=== PATIENT | male | born 1965 | race Caucasian/White ===

== ENCOUNTER 2016-10-22 18:02 | Emergency (ER) | payer SELFPAY ==
[~2016-10-22] VITALS: Ht 182.9 cm; Wt 93.0 kg
[2016-10-22 18:04] VITALS: Ht 182.9 cm; Wt 93.0 kg
[2016-10-22] MEDS ORDERED: KETOROLAC 15 MG INJ IV STA (19:17)
[2016-10-22] MEDS ORDERED: HYDROCODONE/APAP (10/325) TAB PO ONE (19:30)
--- NOTE | 2016-10-22 20:18 | RADRPT ---
PROCEDURE: US left knee. CLINICAL INDICATION: Septic joint, Delgado's cyst. TECHNIQUE: Multiple longitudinal and transverse images of the left knee were obtained. Images were interpreted on high-resolution PACS system. COMPARISON: No prior studies are available for comparison. FINDINGS: Within the posterior knee popliteal region, there is a lobulated fluid collection without internal f low measuring about 1.9 x 1.2 x 2.6 cm with slight wall thickening. The popliteal vein is intact an d compressible without a focal thrombus. RPTAT: ZZ IMPRESSION: Lobulated fluid collection without internal flow measuring up to 2.6 cm within the posterior knee po pliteal region which may correspond with a popliteal cyst. A follow-up MRI may be obtained for floridalma tional evaluation. .Linda Jones MD, Date Time Electronically viewed and signed by .Linda Jones MD, on 10/22/2016 20:18 .T/
--- NOTE | 2016-10-22 20:20 | RADRPT ---
PROCEDURE: XR Knee. CLINICAL INDICATION: Septic joint with pain, Delgado's cyst. TECHNIQUE: Three views of the left knee are available for review. COMPARISON: None available FINDINGS: There is no acute fracture or dislocation. There is moderate to severe joint space narrowing within the medial compartment more prominent along the lateral aspect. Mild joint space narrowing is also present within the lateral compartment. There is also joint space narrowing within the patellofemo ral compartment. There is prominent tricompartmental osseous spurring. There is an osteochondral b jeanette within the posterior knee posterior to the femoral condyles measuring about 3.0 cm. There may a lso be smaller osteochondral bodies posterior to the joint line. There is a vayooznv-we-buirb joint effusion. RPTAT: ZZ IMPRESSION: 1. Tricompartmental osteoarthrosis, more prominent involving the medial and patellofemoral compartm ents with joint space narrowing and prominent osseous spurring. 2. Moderate to large joint effusion. 3. Osteochondral bodies posterior to the knee measuring up to 3.0 cm. .Linda Jones MD, MD Date Time Electronically viewed and signed by .Linda Jones MD, on 10/22/2016 20:20 .T/
[2016-10-22 20:21] LABS: BASOPHILS % 0.1 % (0.0-2.0); EOSINOPHILS % 0.3 % (0.0-7.0); HEMATOCRIT 44.5 % (42.0-52.0); HEMOGLOBIN 14.6 g/dl (14.0-18.0); LYMPHOCYTES # 1.3 10^3/ul (0.8-2.9); LYMPHOCYTES % 19.5 % (15.0-51.0); MEAN CORPUSCULAR HEMOGLOBIN 26.8 pg (29.0-33.0); MEAN CORPUSCULAR HGB CONC 32.8 g/dl (32.0-37.0); MEAN CORPUSCULAR VOLUME 81.7 fl (82.0-101.0); MEAN PLATELET VOLUME 10.7 fl (7.4-10.4); MONOCYTE # 0.5 10^3/ul (0.3-0.9); MONOCYTES % 7.8 % (0.0-11.0); NEUTROPHIL # 4.9 10^3/ul (1.6-7.5); PLATELET COUNT 186 10^3/UL (140-415); RED BLOOD COUNT 5.45 10^6/ul (4.70-6.10); RED CELL DISTRIBUTION WIDTH 13.2 % (11.5-14.5); WHITE BLOOD COUNT 6.8 10^3/ul (4.8-10.8)
--- NOTE | 2016-10-22 20:55 | ERD ---
ER Documentation Chief Complaint Date/Time DATE: 10/22/16 TIME: 20:52 Chief Complaint left knee pain/swelling x 3 days (ANANTH CHAVARRIA) HPI This pleasant 51-year-old male patient presents to emergency department for evaluation of left knee pain. Patient reports pain 3 days with worsening. Patient reports that he has a extensive knee history including 4 arthroscopic procedures on the left knee, 2 on the right knee. Patient denies any injury, reports that he had worked longer hours Thursday and Thursday was on his feet longer noticed a feeling of a strain, patient now reports warmth, pain with bending his knee. Patient is able to feel a mass behind his left knee. Patient denies shortness of breath, recent surgery, nausea vomiting fever or chills. (ANANTH CHAVARRIA) ROS All systems reviewed and are negative except as per history of present illness. (ANANTH CHAVARRIA) Medications Home Meds Active Scripts Hydrocodone/Acetaminophen ([place] 10-325 Tablet) 1 Each Tablet, 1 TAB PO Q6H Y for PAIN, #20 TAB Prov:DEONOLGAANANTH 10/23/16 Naproxen* (Naprosyn*) 500 Mg Tablet, 500 MG PO BID Y for PAIN AND/OR INFLAMMATION for 10 Days, #20 TAB Prov:DEON,ANANTH 10/23/16 Allergies Allergies: Coded Allergies: No Known Allergy (Unverified , 10/23/16) PMhx/Soc History of Surgery: Yes (LEFT KNEE X 2; RIGHT KNEE X 4.) Anesthesia Reaction: No Hx Neurological Disorder: No Hx Respiratory Disorders: No Hx Cardiac Disorders: No Hx Psychiatric Problems: No Hx Miscellaneous Medical Probl: No Hx Alcohol Use: No Hx Substance Use: Yes (MARIJUANA) Smoking Status: Never smoker (ANANTH CHAVARRIA) Physical Exam Vitals Vitals stable, triage notes reviewed (ANANTH CHAVARRIA) Physical Exam Const: Well-nourished, well hydrated, with well-appearing no acute distress Head: Eyes: Normal Conjunctiva PERRLA, EOMI ENT: Neck: Resp: Respirations even and unlabored no respiratory distress Cardio: Abd: Back: Ext: Lower Extremity -left: Skin: No petechiae or rashes left knee presents with bony deformities, Compartments: Soft Motor: Decreased range of motion with flexion pain with ambulating, full hip flexion and ankle rotation Sensation: [Intact to light touch anterior posterior lateral surfaces Bones: Patellar tenderness Joints: Obvious effusion, anterior knee tenderness Pulses/Perfusion: 2+ DP, Capillary refill < 2 seconds Neur: Awake and alert Psych: Normal Mood and Affect (DEON,ANANTH) Physical Exam Const: well appearing, nontoxic, no apparent distress Head: Atraumatic Eyes: Normal Conjunctiva ENT: Normal External Ears, Nose and Mouth. Neck: Full range of motion..~ No meningismus. Resp: Clear to auscultation bilaterally Cardio: Regular rate and rhythm, no murmurs. 2+ Dp and PT pulses Abd: Soft, non tender, non distended. Normal bowel sounds Skin: No petechiae or rashes Back: No midline or flank tenderness Ext: Left knee with joint effusion, no overlying warmth or erythema. Mild tenderness to palpation. No calf tenderness. Very limited ROM of left knee secondary to pain. All other joints normal. Neur: Awake and alert, motor and sensations intact in all 4 extremities. Psych: Normal Mood and Affect (EKMEKJIANYOVANI MD) Results 24 hrs Laboratory Tests Test 10/22/16 20:07 10/22/16 23:16 10/23/16 02:35 10/27/16 07:38 White Blood Count 6.810^3/ul Red Blood Count 5.4510^6/ul Hemoglobin 14.6g/dl Hematocrit 44.5% Mean Corpuscular Volume 81.7fl Mean Corpuscular Hemoglobin 26.8pg Mean Corpuscular Hemoglobin Concent 32.8g/dl Red Cell Distribution Width 13.2% Platelet Count 68505^3/UL Mean Platelet Volume 10.7fl Neutrophils % 72.0% Lymphocytes % 19.5% Monocytes % 7.8% Eosinophils % 0.3% Basophils % 0.1% Nucleated Red Blood Cells % 0.0/100WBC Neutrophils # 4.910^3/ul Lymphocytes # 1.310^3/ul Monocytes # 0.510^3/ul Eosinophils # 0.010^3/ul Basophils # 0.010^3/ul Nucleated Red Blood Cells # 0.010^3/ul Erythrocyte Sedimentation Rate 13mm/Hr Uric Acid 4.5mg/dl Body Fluid Type SYNOVIAL FLUID Body Fluid Lactate Dehydrogenase U/L Synovial Fluid Source SYNOVIAL Synovial Fluid Color YELLOW Synovial Fluid Appearance CLOUDY Synovial Fluid Volume 70.0mL Synovial Fluid WBC 6973/cmm Synovial Fluid Polynuclear WBCs % 93.6% Synovial Fluid Mononuclear WBCs % 6.4& Synovial Fluid Crystals NO CRYSTALS SEEN Miscellaneous Test Lab Scanned Report REFERENCE [id number] Current Medications Medications (Trade) Dose Ordered Sig/Fly Route PRN Reason Start Time Stop Time Status Last Admin Dose Admin Acetaminophen/ Hydrocodone Bitart ([place] (10/325)) 1 tab ONCE ONCE PO 10/22/16 19:30 10/22/16 19:31 DC 10/22/16 19:29 Ketorolac Tromethamine (Toradol) 15 mg ONCE STAT IV 10/22/16 19:17 10/22/16 19:24 DC 10/22/16 19:30 Lidocaine (Xylocaine 2% (Mdv) 20 ml) 20 ml ONCE STAT INJ 10/22/16 21:45 10/22/16 21:51 DC Acetaminophen/ Hydrocodone Bitart ([place] (10/325)) 1 tab ONCE ONCE PO 10/23/16 00:00 10/23/16 00:01 DC 10/23/16 00:20 (YOVANI FREEMAN MD) Results 24 hrs Interpretation text CBC shows no evidence of hemorrhage or infection Uric acid unremarkable for elevation suggestive of gout Sed rate is normal Synovial fluid positive for neutrophils and WBCs. Negative for crystals Gram stain negative for organisms, 4+ white blood cells. (ANANTH CHAVARRIA) Procedures/MDM PROCEDURE: XR Knee. CLINICAL INDICATION: Septic joint with pain, Delgado's cyst. TECHNIQUE: Three views of the left knee are available for review. COMPARISON: None available FINDINGS: There is no acute fracture or dislocation. There is moderate to severe joint space narrowing within the medial compartment more prominent along the lateral aspect. Mild joint space narrowing is also present within the lateral compartment. There is also joint space narrowing within the patellofemoral compartment. There is prominent tricompartmental osseous spurring. There is an osteochondral body within the posterior knee posterior to the femoral condyles measuring about 3.0 cm. There may also be smaller osteochondral bodies posterior to the joint line. There is a bzevfbmf-is-xmfdp joint effusion. RPTAT: ZBhakti IMPRESSION: 1. Tricompartmental osteoarthrosis, more prominent involving the medial and patellofemoral compartments with joint space narrowing and prominent osseous spurring. 2. Moderate to large joint effusion. 3. Osteochondral bodies posterior to the knee measuring up to 3.0 cm. Electronically viewed and signed by .Linda Jones MD, on 10/22/2016 20: 20 PROCEDURE: US left knee. CLINICAL INDICATION: Septic joint, Delgado's cyst. TECHNIQUE: Multiple longitudinal and transverse images of the left knee were obtained. Images were interpreted on high-resolution PACS system. COMPARISON: No prior studies are available for comparison. FINDINGS: Within the posterior knee popliteal region, there is a lobulated fluid collection without internal flow measuring about 1.9 x 1.2 x 2.6 cm with slight wall thickening. The popliteal vein is intact and compressible without a focal thrombus. RPTAT: ZZ IMPRESSION: Lobulated fluid collection without internal flow measuring up to 2.6 cm within the posterior knee popliteal region which may correspond with a popliteal cyst. A follow-up MRI may be obtained for additional evaluation. Electronically viewed and signed by .Linda Jones MD, on 10/22/2016 20: 18 PROCEDURE: US left knee. CLINICAL INDICATION: Septic joint, Delgado's cyst. TECHNIQUE: Multiple longitudinal and transverse images of the left knee were obtained. Images were interpreted on high-resolution PACS system. COMPARISON: No prior studies are available for comparison. FINDINGS: Within the posterior knee popliteal region, there is a lobulated fluid collection without internal flow measuring about 1.9 x 1.2 x 2.6 cm with slight wall thickening. The popliteal vein is intact and compressible without a focal thrombus. RPTAT: ZZ IMPRESSION: Lobulated fluid collection without internal flow measuring up to 2.6 cm within the posterior knee popliteal region which may correspond with a popliteal cyst. A follow-up MRI may be obtained for additional evaluation. .Linda Jones MD, MD Procedure note; Left knee prepped with alcohol and benzoin in usual sterile fashion, local anesthetic with 2% lidocaine to lateral aspect of distally to patella. Scant amount of aspirate and needle hub. Case discussed with supervising physician Dr. Seay Physician i re-preps knee with alcohol and benzoin in usual sterile fraction, local anesthesia with 2% lidocaine to lateral aspect of the knee superior to patella and withdraws 66 mL of turbid yellow fluid. This fluid was sent for culture and sensitivity. Patient tolerated the seizure well, no bleeding, puncture wounds covered with bandage. Raymond wrap applied for support. Teaching provided as to activity, patient has lidocaine injected in the to be careful for the next several hours not to overextend or injure his knee. This pleasant 51-year-old male patient presents to emergency department for knee pain with history of osteoarthritis. Degenerative joint disease. Septic joint is suspected along with knee effusion, Delgado's cyst or popliteal cyst. WBC obtained no evidence of infection or acute blood loss. Right knee x-ray shows tricompartmental osteoarthritis more prominent involving the medial and patellofemoral compartments with joint space narrowing predominant osseous spurring. Moderate to large joint effusion. Osteochondral drill bodies posterior to the knee measuring up to 3.0 cm Left knee ultrasound which documents a lobulated fluid collection without internal flow measuring up to 2.6 cm with posterior knee popliteal region which may correspond with popliteal cyst. Follow-up MRI suggested if warranted. Patient receives Toradol, and [place] for pain while in emergency department with effective relief of pain. Joint aspirate of 65 cc turbid yellow serous fluid sent for laboratory testing. With abnormal results, neutrophils, WBCs. Gram stain negative for organisms Dr. Seay called residential specialist Dr. Troy discussed case. Patient is appropriate for outpatient management and follow-up with residential specialist. Patient will be discharged home with Raymond wrap, pain medication, Naprosyn and [place]. Follow-up with residential specialist for plan of action and treatment options for left knee pain degenerative joint disease possible popliteal cyst. I feel the patient is stable for discharge at this time. I have discussed results, examination findings, the treatment plan with the patient and family present prior to discharge. Indications for emergent reevaluation, side effects of medication were also discussed. All questions were answered. Patient verbalizes understanding and agrees with plan of care. (ANANTH CHAVARRIA) I evaluated the patient myself and I discussed this case with the PA. Decision was made to aspirate the joiint, mainly for relief of the patient's symptoms, as concern for septic joint was low. Her attempt at joint aspiration was unsuccessful, so I repeated the procedure, and successfully removed about 65-66 ml of yellow, cloudy fluid. The results of the fluid analysis were concerning as there was a high neutrophil %, but negative gram stain and the WBC count was not as elevated as would be expected with a bacterial joint infection. ESR and WBC of the blood were wnl. I spoke with Dr. Troy, the orthopedist three dimensional art instructor about this case. He states that he doubts this to be a septic joint. He stated if gram stain negative, patient appropriate for outpatient Ortho follow up and if I want, to inject the knee with steroid in the ED. At this time, I think it is more safe to wait for the culture results prior to injection with steroids. I discussed the discharge plan with the patient and he is comfortable with the plan for discharge and outpatient follow up. Return precautions given. (YOVANI FREEMAN MD) Departure Diagnosis: Primary Impression: Osteoarthritis Osteoarthritis location: knee Osteoarthritis type: unspecified Laterality: left Qualified Code: M17.12 - Osteoarthritis of left knee, unspecified osteoarthritis type Additional Impression: Joint effusion of knee Condition: Stable Patient Instructions: Knee Effusion, What Is Arthritis? Additional Instructions: Thank you for for coming to [facility] for your care today. Please ask your nurse or provider if you have questions about your care today and do not leave until all your questions have been answered. Please use any medications given as directed and follow-up with your doctor (or the doctor you were referred to) in the next 2-3 days. If you do not have a primary care doctor you may follow up at the [facility] (listed below). You may also use motrin and tylenol as needed for fever and/or pain unless instructed otherwise by your provider or nurse. Indications for more urgent follow-up have been discussed, but you may return to the Emergency Department at ANY time for any worrisome or worsening symptoms. If you have abdominal pain, please know that no test or exam you received is perfect and you should follow up within 8 hours for continued pain. If you had any imaging studies today, such as an X-Ray or CT Scan, these studies will be reviewed later by a radiologist. You will be called if there are important findings that were not identified today, so make sure the contact information you provided at registration is correct. If you received any narcotic pain control medicine today, such as Vicodin, Morphine or Dilaudid, your coordination and judgment may be affected for a number of hours. Please do not drive or operate heavy machinery, and you may want someone to assist you at home. If you were given a prescription for narcotic medication, be aware that it is very addictive- use sparingly and only if necessary. ANANTH CHAVARRIA Oct 22, 2016 20:54 YOVANI FREEMAN MD Oct 29, 2016 17:05
[2016-10-22] MEDS ORDERED: LIDOCAINE 2% (MDV) 20 ML INJ INJ STA (21:45)
[2016-10-22 23:46] LABS: SYN FLD SOURCE SYNOVIAL
[2016-10-22 23:47] LABS: SYN FLD COLOR YELLOW
[2016-10-22 23:48] LABS: SYN FLD CLARITY CLOUDY
[2016-10-23] MEDS ORDERED: HYDROCODONE/APAP (10/325) TAB PO ONE
[2016-10-23 02:00] LABS: SYN FLD WBC 6973 /cmm (0-150)
[2016-10-23 02:25] LABS: SYN FLD CRYSTALS NO CRYSTALS SEEN (None seen)
[2016-10-23 02:26] LABS: SYN FLD MN % 6.4 &; SYN FLD PMN % 93.6 % (0.0-25.0)
[2016-10-23] MEDS ORDERED: NAPR-260 PO ×2 (03:37→03:38)
[2016-10-23] MEDS ORDERED: HYDR-902 PO (03:39)
[2016-10-23 03:41] VITALS: BP 126/78; PULSE 78; RESP 18; TEMP 98.7
[2016-10-23 09:12] LABS: FLUID TYPE SYNOVIAL FLUID
== END 2016-10-23 04:19 | disposition home or self-care (01) ==
LOC: FTE 18:02
DX: M17.12 Unilateral primary osteoarthritis, left knee (principal); M25.462 Effusion, left knee
CPT/HCPCS: 20610; 73562; 76882; 83615; 84560; 85025; 85651; 87070; 89060; 96374; 99285; J1885